=== PATIENT | female | born 1990 | race Two or more races ===

== ENCOUNTER 2018-03-26 19:15 | Emergency (ER) | payer OTHER ==
[~2018-03-26] VITALS: Ht 149.9 cm; Wt 59.9 kg
[~2018-03-26 19:15] MED LIST: PRENATAL1 TAB
== END 2018-03-26 22:59 | disposition home or self-care (01) ==
LOC: ER 19:15
DX: B37.3 Candidiasis of vulva and vagina (principal)

== ENCOUNTER 2019-01-06 15:22 | Emergency (ER) | payer OTHER ==
[~2019-01-06] VITALS: Ht 149.9 cm; Wt 52.2 kg
[2019-01-06] MEDS ORDERED: HIGH POTENCY I134 MG (16:00)
== END 2019-01-06 19:03 | disposition home or self-care (01) ==
LOC: ER 15:22
DX: K22.8 Other specified diseases of esophagus (principal); R07.0 Pain in throat; R13.19 Other dysphagia

== ENCOUNTER 2020-11-10 10:49 | Outpatient (CLI) | payer OTHER ==
[~2020-11-10 10:49] MED LIST changes: +HIGH POTENCY I134 MG
== END 2020-11-10 10:51 | disposition home or self-care (01) ==
LOC: LAB 10:49
PROVIDERS: ATTEND Obstetrics & Gynecology Maternal & Fetal Medicine
DX: D64.89 Other specified anemias (principal); E03.8 Other specified hypothyroidism; N30.00 Acute cystitis without hematuria; R07.89 Other chest pain

== ENCOUNTER 2020-11-12 11:45 | Inpatient (IN) | payer OTHER ==
[~2020-11-12] VITALS: Ht 149.9 cm; Wt 53.1 kg
[2020-11-18] MEDS ORDERED: LEVONO-E ESTRA1 EACH (08:34)
== END 2020-11-21 12:53 | disposition home or self-care (01) | DRG 743 ==
LOC: O/R 11-18 05:45 → OB/GYN 11-18 05:45 → SURH 11-18 07:00 → OB/GYN 11-18 11:29 → SURH 11-18 11:45 → OB/GYN 11-21 12:53
PROVIDERS: ADMIT Obstetrics & Gynecology Maternal & Fetal Medicine; ATTEND Obstetrics & Gynecology Maternal & Fetal Medicine
PROC: 0UT90ZL Resection of Uterus, Supracervical, Open Approach (ICD-10-PCS; principal; 2020-11-18 07:00)
DX: N80.0 Endometriosis of uterus (principal); N92.0 Excessive and frequent menstruation with regular cycle; D26.1 Other benign neoplasm of corpus uteri

== ENCOUNTER 2021-10-07 12:15 | Outpatient (CLI) | payer OTHER ==
[~2021-10-07 12:15] MED LIST changes: +LEVONO-E ESTRA1 EACH
== END 2021-10-07 12:24 | disposition home or self-care (01) ==
LOC: RAD 12:15
PROVIDERS: ATTEND Surgery
DX: R10.9 Unspecified abdominal pain (principal); K50.012 Crohn's disease of small intestine with intestinal obstruction; D50.9 Iron deficiency anemia, unspecified; K56.50 Intestinal adhesions [bands], unspecified as to partial versus complete obstruction

== ENCOUNTER 2021-10-14 12:15 | Inpatient (IN) | payer OTHER ==
[~2021-10-14] VITALS: Ht 149.9 cm; Wt 54.0 kg
[2021-10-19] MEDS ORDERED: PREDNISONE10 M2 (11:24)
[2021-10-19] MEDS ORDERED: PANTOPRAZOLE SO40 MG (11:24)
[2021-10-25] MEDS ORDERED: QUESTRAN LIGHT210 GM PO (13:54)
[2021-10-25] MEDS ORDERED: INTESTINEX680 M1 PO (13:54)
== END 2021-10-25 18:37 | disposition home or self-care (01) | DRG 330 ==
LOC: O/R 10-19 06:22 → SURH 10-19 07:00
PROVIDERS: ADMIT Surgery; ATTEND Surgery
PROC: 0DB84ZZ Excision of Small Intestine, Percutaneous Endoscopic Approach (ICD-10-PCS; principal; 2021-10-19 07:00)
DX: K50.012 Crohn's disease of small intestine with intestinal obstruction (principal); K91.30 Postprocedural intestinal obstruction, unspecified as to partial versus complete; R59.0 Localized enlarged lymph nodes; R10.9 Unspecified abdominal pain; D50.9 Iron deficiency anemia, unspecified; Z20.822 Contact with and (suspected) exposure to COVID-19; Z53.31 Laparoscopic surgical procedure converted to open procedure

== ENCOUNTER 2023-07-01 13:46 | Emergency (ER) | payer OTHER ==
[~2023-07-01] VITALS: Ht 149.9 cm; Wt 55.3 kg
[~2023-07-01 13:46] MED LIST changes: +INTESTINEX680 M1 PO; +PANTOPRAZOLE SO40 MG; +PREDNISONE10 M2; +QUESTRAN LIGHT210 GM PO
[2023-07-01] MEDS ORDERED: FAMOTIDINE/PF 20 MG/2 ML VIAL IV ONE (16:00)
[2023-07-01] MEDS ORDERED: ONDANSETRON HCL 2 MG/ML VIAL IV ONE (16:00)
[2023-07-01] MEDS ORDERED: 0.9 % SODIUM CHLORIDE 1,000 ML IV ONE (16:00)
[2023-07-01 16:39] LABS: URINE APPEARANCE Clear; URINE BACTERIA 720.4 uL (0.0-1933); URINE BILIRRUBIN Negative (NEGATIVE); URINE BLOOD Negative; URINE COLOR Yellow; URINE EPITHELIAL CELLS 25.7 uL (0.0-38.8); URINE GLUCOSE Negative (NEGATIVE); URINE LEUKOCYTE Negative; URINE NITRATE Negative; URINE PROTEIN Negative (NEGATIVE); URINE UROBILINOGEN 0.2 E.U./dl; URINE WBC 10.4 uL (0.0-23.2)
[2023-07-01 16:45] LABS: HEMATOCRIT 40.8 % (36.0-45.00); HEMOGLOBIN 13.8 g/dL (12.0-15.00); MEAN CELL VOLUME 83.4 fL (80.00-100.00); MEAN CORPUSCULAR HEMOGLOBIN 28.2 pg (27.00-32.0); MEAN CORPUSCULAR HGB CONC 33.8 g/dl (32.0-36.0); PLATELET COUNT 312 K/uL (150-450); RED BLOOD COUNT 4.89 M/uL (4.00-6.00); RED CELL DISTRIBUTION WIDTH 13.3 % (11.5-14.5)
[2023-07-01 17:02] LABS: AMYLASE 66 U/L (25-115); LIPASE 79 U/L (13-75)
[2023-07-01 17:06] LABS: ALBUMIN 4.4 gm/dL (3.4-5.0); BILIRUBIN TOTAL 0.44 mg/dL (0.3-1.2); CALCIUM 9.6 mg/dL (8.5-10.1); CREATININE SERUM 0.66 mg/dL (0.55-1.02); GFR 103.14; GLOBULINA 3.3 G/DL (2.4-3.5); POTASSIUM 4.22 mEq/L (3.5-5.1); TOTAL PROTEIN 7.7 gm/dL (6.4-8.2)
== END 2023-07-02 00:22 | disposition home or self-care (01) ==
LOC: ER 13:46
PROVIDERS: Nurse Practitioner Family
DX: R14.0 Abdominal distension (gaseous) (principal); R10.9 Unspecified abdominal pain; Z20.822 Contact with and (suspected) exposure to COVID-19; Z91.013 Allergy to seafood
CPT/HCPCS: 36415; 74177; Q9965

== ENCOUNTER 2023-07-17 09:35 | Emergency (ER) | payer OTHER ==
[~2023-07-17] VITALS: Ht 149.9 cm; Wt 55.3 kg
[2023-07-17] MEDS ORDERED: FAMOTIDINE/PF 20 MG in 0.9 % SODIUM CHLORIDE 8 ML IV PUSH STA (10:11)
[2023-07-17] MEDS ORDERED: DICYCLOMINE HCL 10 MG CAPSULE PO ONE (10:15)
[2023-07-17] MEDS ORDERED: SUCRALFATE 1 G TABLET PO ONE (10:15)
[2023-07-17 10:47] LABS: HEMOGLOBIN 11.6 g/dL (12.0-15.00); MEAN CELL VOLUME 84.1 fL (80.00-100.00); MEAN CORPUSCULAR HEMOGLOBIN 28.7 pg (27.00-32.0); MEAN CORPUSCULAR HGB CONC 34.1 g/dl (32.0-36.0); PLATELET COUNT 221 K/uL (150-450); RED BLOOD COUNT 4.05 M/uL (4.00-6.00); RED CELL DISTRIBUTION WIDTH 13.9 % (11.5-14.5)
[2023-07-17 11:22] LABS: ALBUMIN 3.9 gm/dL (3.4-5.0); BILIRUBIN TOTAL 0.55 mg/dL (0.3-1.2); BILIRUBIN,CONJUGATED 0.14 mg/dL (0.0-0.2); BILIRUBIN,UNCONJUGATED 0.41 mg/dL (0.0-0.6); CALCIUM 8.8 mg/dL (8.5-10.1); CREATININE SERUM 0.59 mg/dL (0.55-1.02); GFR 117.38; GLOBULINA 3.2 G/DL (2.4-3.5); POTASSIUM 3.92 mEq/L (3.5-5.1); TOTAL PROTEIN 7.1 gm/dL (6.4-8.2)
[2023-07-17] MEDS ORDERED: CIPRO500 MG PO (12:36)
[2023-07-17] MEDS ORDERED: PEPCID AC20 MG PO (12:36)
[2023-07-17] MEDS ORDERED: CARAFATE1 GM PO (12:37)
[2023-07-17] MEDS ORDERED: LEVSIN/SL0.125 MG SL (12:37)
== END 2023-07-17 13:02 | disposition home or self-care (01) ==
LOC: ER 09:35
PROVIDERS: General Practice
DX: R19.7 Diarrhea, unspecified (principal)

== ENCOUNTER → 2024-01-26 | Outpatient (CLI) | payer OTHER ==
[~2024-01-26] MED LIST changes: +CARAFATE1 GM PO; +CIPRO500 MG PO; +LEVSIN/SL0.125 MG SL; +PEPCID AC20 MG PO
== END | disposition home or self-care (01) ==
LOC: SONOGRAMA 13:03
DX: M75.41 Impingement syndrome of right shoulder (principal)

== ENCOUNTER 2024-02-03 10:55 | Outpatient (CLI) | payer OTHER ==
[2024-02-03 11:32] LABS: HEMATOCRIT 38.1 % (36.0-45.00); MEAN CORPUSCULAR HEMOGLOBIN 28.7 pg (27.00-32.0); MEAN CORPUSCULAR HGB CONC 34.2 g/dl (32.0-36.0); PLATELET COUNT 218 K/uL (150-450); RED BLOOD COUNT 4.54 M/uL (4.00-6.00); RED CELL DISTRIBUTION WIDTH 13.8 % (11.5-14.5)
[2024-02-03 11:57] LABS: BILIRUBIN TOTAL 0.53 mg/dL (0.3-1.2); CALCIUM 8.7 mg/dL (8.5-10.1); CHOL HDL RATIO 1.8 (0-5.0); CREATININE SERUM 0.6 mg/dL (0.55-1.02); GFR 114.43; GLOBULINA 2.7 G/DL (2.4-3.5); POTASSIUM 4.48 mEq/L (3.5-5.1); TOTAL PROTEIN 6.7 gm/dL (6.4-8.2); TSH 1.06 uIU/mL (0.358-3.74)
[2024-02-03 12:17] LABS: PH,URINE 5.5 (5.0-8.0); URINE APPEARANCE Clear; URINE BILIRRUBIN Negative (NEGATIVE); URINE BLOOD Negative; URINE COLOR Yellow; URINE GLUCOSE Negative (NEGATIVE); URINE KETONE Negative (NEGATIVE); URINE LEUKOCYTE Negative; URINE NITRATE Negative; URINE PROTEIN Negative (NEGATIVE); URINE UROBILINOGEN 0.2 E.U./dl
[2024-02-03 12:18] LABS: URINE BACTERIA 27.7 uL (0.0-1933); URINE EPITHELIAL CELLS 1.6 uL (0.0-38.8); URINE RBC 4.4 uL (0.0-20.8); URINE WBC 2.1 uL (0.0-23.2)
[2024-02-03 12:25] LABS: URINE CAST 0.15 uL (0.0-1.40)
== END 2024-02-03 10:59 | disposition home or self-care (01) ==
LOC: LAB 10:55
PROVIDERS: ATTEND Obstetrics & Gynecology Maternal & Fetal Medicine
DX: E03.8 Other specified hypothyroidism (principal); D63.8 Anemia in other chronic diseases classified elsewhere; N30.90 Cystitis, unspecified without hematuria; E78.00 Pure hypercholesterolemia, unspecified; R73.9 Hyperglycemia, unspecified; K92.1 Melena; Z12.11 Encounter for screening for malignant neoplasm of colon; E55.9 Vitamin D deficiency, unspecified

== ENCOUNTER 2024-03-15 15:37 | Emergency (ER) | payer OTHER ==
[~2024-03-15] VITALS: Ht 149.9 cm; Wt 59.9 kg
[2024-03-15] MEDS ORDERED: DEXAMETHASONE4 MG PO (16:19)
[2024-03-15] MEDS ORDERED: FAMOTIDINE/PF 20 MG/2 ML VIAL IV PUSH STA (16:41)
[2024-03-15 17:32] LABS: HEMATOCRIT 39.5 % (36.0-45.00); HEMOGLOBIN 13.2 g/dL (12.0-15.00); MEAN CELL VOLUME 84.8 fL (80.00-100.00); MEAN CORPUSCULAR HEMOGLOBIN 28.3 pg (27.00-32.0); MEAN CORPUSCULAR HGB CONC 33.4 g/dl (32.0-36.0); PLATELET COUNT 270 K/uL (150-450); RED BLOOD COUNT 4.65 M/uL (4.00-6.00); RED CELL DISTRIBUTION WIDTH 13.8 % (11.5-14.5)
[2024-03-15 18:01] LABS: CALCIUM 9.1 mg/dL (8.5-10.1); CREATININE SERUM 0.81 mg/dL (0.55-1.02); GFR 80.94; POTASSIUM 3.43 mEq/L (3.5-5.1)
== END 2024-03-15 18:42 | disposition home or self-care (01) ==
LOC: ER 15:39
PROVIDERS: General Practice
DX: R07.9 Chest pain, unspecified (principal); Z91.013 Allergy to seafood

== ENCOUNTER 2024-11-12 10:10 | Outpatient (CLI) | payer OTHER ==
[~2024-11-12 10:10] MED LIST changes: +DEXAMETHASONE4 MG PO
== END 2024-11-12 10:34 | disposition home or self-care (01) ==
LOC: TOM 10:10
PROVIDERS: ATTEND Internal Medicine Rheumatology
DX: M50.80 Other cervical disc disorders, unspecified cervical region (principal)

== ENCOUNTER 2024-11-12 11:37 | Outpatient (CLI) | payer OTHER | END 2024-11-12 11:40 | disposition home or self-care (01) | LOC: LAB 11:37 | PROVIDERS: ATTEND Internal Medicine Gastroenterology | DX: R14.3 Flatulence (principal); R11.0 Nausea; R19.7 Diarrhea, unspecified; K50.00 Crohn's disease of small intestine without complications ==

== ENCOUNTER 2024-12-14 09:17 | Outpatient (CLI) | payer OTHER ==
[2024-12-14 10:04] LABS: URINE APPEARANCE Clear; URINE BILIRRUBIN Negative (NEGATIVE); URINE BLOOD Negative; URINE COLOR Yellow; URINE GLUCOSE Negative (NEGATIVE); URINE KETONE Negative (NEGATIVE); URINE LEUKOCYTE Negative; URINE NITRATE Negative; URINE PROTEIN Negative (NEGATIVE); URINE UROBILINOGEN 0.2 E.U./dl
[2024-12-14 10:08] LABS: LYMPH # 1.55 (1.18-3.74); MEAN PLATELET VOLUME 9.90 fl (9.4-12.4); RED CELL DISTRIBUTION WIDTH 12.6 % (11.6-14.4)
[2024-12-14 10:10] LABS: URINE BACTERIA 284.4 uL (0.0-1933); URINE EPITHELIAL CELLS 7.2 uL (0.0-38.8); URINE RBC 3.0 uL (0.0-20.8); URINE WBC 7.3 uL (0.0-23.2)
[2024-12-14 10:11] LABS: BASO % 0.6 % (0.1-1.2); EOS # 0.13 (0.04-0.54); EOS % 1.6 % (0.7-7.0); LYMPH % 18.6 % (19.3-53.1); MONO # 0.64 (0.24-0.82); MONO % 7.7 % (4.7-12.5); NEUT # 5.95 (1.56-6.13); NEUT % 71.1 % (34.0-71.1)
[2024-12-14 10:13] LABS: ob NEGATIVE (NEGATIVE)
[2024-12-14 10:25] LABS: URINE CAST 0.00 uL (0.0-1.40)
[2024-12-14 10:47] LABS: ALT/SGPT 18.0 U/L (12-78); AST/SGOT 8.0 U/L (15-37); BILIRUBIN TOTAL 0.48 mg/dL (0.3-1.2); BUN CREA RATIO 26.0 (7.0-25.0); CHOL HDL RATIO 1.7 (0-5.0); CREATININE SERUM 0.53 mg/dL (0.55-1.02); GFR 131.27; GLOBULINA 2.7 G/DL (2.4-3.5); GLUCOSE FASTING 83.0 mg/dL (65-100); HDL 67.0 mg/dl (40-60); LDL 36.0 mg/dl (0-130); OSMOLALITY SERUM 279.0 MOSM/KG (275-295); TSH 1.72 uIU/mL (0.358-3.74); VLDL 8.0 (0-39)
== END 2024-12-14 09:18 | disposition home or self-care (01) ==
LOC: LAB 09:17
PROVIDERS: ATTEND General Practice
DX: Z13.29 Encounter for screening for other suspected endocrine disorder (principal); I10 Essential (primary) hypertension; Z12.11 Encounter for screening for malignant neoplasm of colon; N39.0 Urinary tract infection, site not specified; E78.5 Hyperlipidemia, unspecified